=== PATIENT | male | born 1965 | race Caucasian/White ===

== ENCOUNTER 2018-01-24 11:37 | Emergency (ER) | payer SELFPAY ==
--- NOTE | 2018-01-24 12:43 | ER Document Report ---
ED Medical Screen (RME) - General Chief Complaint: Other Stated Complaint: ABDOMINAL PAIN Time Seen by Provider: 01/24/18 12:43 TRAVEL OUTSIDE OF THE [place] IN LAST 30 DAYS: No - HPI Notes: 01/24/18 12:43 Painful hernia for 24 hours. - Related Data Allergies/Adverse Reactions: Penicillins Allergy (Verified 01/24/18 11:41) Past Medical History - Social History Chew tobacco use (# tins/day): No Frequency of alcohol use: None Drug Abuse: None Renal/ Medical History: Denies: Hx Peritoneal Dialysis Past Surgical History: Reports: Hx Oral Surgery - Teeth extraction Review of Systems - Review of Systems Gastrointestinal: Abdominal pain Physical Exam - Vital signs Vitals: Temp Pulse Resp BP Pulse Ox 98.3 F 74 20 107/78 96 01/24/18 11:44 01/24/18 11:44 01/24/18 11:44 01/24/18 11:44 01/24/18 11:44 - Respiratory Respiratory status: No respiratory distress Chest status: Nontender Breath sounds: Normal Chest palpation: Normal Course - Vital Signs Vital signs: Temp Pulse Resp BP Pulse Ox 98.3 F 74 20 107/78 96 01/24/18 11:44 01/24/18 11:44 01/24/18 11:44 01/24/18 11:44 01/24/18 11:44
--- NOTE | 2018-01-24 13:28 | ER Document Report ---
ED General - General Chief Complaint: Other Stated Complaint: ABDOMINAL PAIN Time Seen by Provider: 01/24/18 12:43 Notes: Patient presents with left inguinal swelling and pain. Patient states that he noticed a bulging in his left inguinal area. Has been present on and off for about 2 weeks. Also had a tick bite on his right testicle. Wants to know if this could be infection. TRAVEL OUTSIDE OF THE [place] IN LAST 30 DAYS: No - HPI Onset: Last week Onset/Duration: Intermittent - Related Data Allergies/Adverse Reactions: Penicillins Allergy (Verified 01/24/18 11:41) Past Medical History - General Information source: Patient - Social History Smoking Status: Current Every Day Smoker Chew tobacco use (# tins/day): No Frequency of alcohol use: None Drug Abuse: None Lives with: Family Family History: Reviewed & Not Pertinent Patient has suicidal ideation: No Patient has homicidal ideation: No Renal/ Medical History: Denies: Hx Peritoneal Dialysis Past Surgical History: Reports: Hx Oral Surgery - Teeth extraction Review of Systems - Review of Systems Constitutional: No symptoms reported EENT: No symptoms reported Cardiovascular: No symptoms reported Respiratory: No symptoms reported Gastrointestinal: Abdominal pain, Other - Bulging in the left inguinal area with abdominal pain Genitourinary: No symptoms reported Male Genitourinary: Other - Tick bite on the scrotum Musculoskeletal: No symptoms reported Skin: No symptoms reported Hematologic/Lymphatic: No symptoms reported Neurological/Psychological: No symptoms reported Physical Exam - Vital signs Vitals: Temp Pulse Resp BP Pulse Ox 98.3 F 74 20 107/78 96 01/24/18 11:44 01/24/18 11:44 01/24/18 11:44 01/24/18 11:44 01/24/18 11:44 Interpretation: Normal - General General appearance: Appears well, Alert - Respiratory Respiratory status: No respiratory distress Chest status: Nontender Breath sounds: Normal Chest palpation: Normal - Cardiovascular Rhythm: Regular Heart sounds: Normal auscultation Murmur: No - Abdominal Inspection: Normal Distension: No distension Bowel sounds: Normal Tenderness: Other - There is a tender reducible inguinal hernia on the left which is palpable. Bowel sounds are present. Organomegaly: No organomegaly - Genitourinary Inspection: Normal Notes: There appears to be a bite raul on the right testicle area which is consistent with his reported history of tick bite. There does not appear to be any bull's- eye lesions or erythema of the scrotum. No obvious cellulitis. - Back Back: Normal, Nontender - Extremities General upper extremity: Normal inspection, Nontender, Normal color, Normal ROM , Normal temperature General lower extremity: Normal inspection, Nontender, Normal color, Normal ROM , Normal temperature, Normal weight bearing. No: Brandy's sign - Neurological Neuro grossly intact: Yes Cognition: Normal Orientation: AAOx4 [place] Coma Scale Eye Opening: Spontaneous Sonja Coma Scale Verbal: Oriented [place] Coma Scale Motor: Obeys Commands [place] Coma Scale Total: 15 Speech: Normal Motor strength normal: LUE, RUE, LLE, RLE Sensory: Normal - Skin Skin Temperature: Warm Skin Moisture: Dry Skin Color: Normal Course - Re-evaluation Re-evalutation: 01/24/18 17:09 Hernia was easily reducible. Patient had immediate resolution of symptoms. At this time will recommend close outpatient follow-up. I did order a Lyme's panel on him as well but did not think patient needs to be treated immediately. - Vital Signs Vital signs: Temp Pulse Resp BP Pulse Ox 98.4 F 61 18 127/91 H 100 01/24/18 14:04 01/24/18 14:04 01/24/18 14:04 01/24/18 14:04 01/24/18 14:04 Discharge - Discharge Clinical Impression: Left inguinal hernia Condition: Good Disposition: HOME, SELF-CARE Instructions: Hernia ([facility]) Additional Instructions: Please make an appointment to follow-up with a general surgeon. Follow instructions as advised. If you notice that the hernia reappears lie on your back and use gentle pressure to reduce the hernia. If you are unable to get this reduced then please return immediately as this can cause a bowel obstruction or worsening complications. Forms: Return to Work Referrals: TAHIR JACKSON MD [ACTIVE STAFF] - Follow up in 1 week
[2018-01-24 14:05] VITALS: BP 127/91
[2018-01-26 07:09] LABS: LYME DISEASE IGM AB <0.80 index (0.00-0.79)
== END 2018-01-24 14:05 | disposition home or self-care (01) ==
LOC: ER 11:37
DX: K40.90 Unilateral inguinal hernia, without obstruction or gangrene, not specified as recurrent (principal); S30.863A Insect bite (nonvenomous) of scrotum and testes, initial encounter; W57.XXXA Bitten or stung by nonvenomous insect and other nonvenomous arthropods, initial encounter; Z88.0 Allergy status to penicillin; F17.200 Nicotine dependence, unspecified, uncomplicated
CPT/HCPCS: 36415; 86617; 86618; 99284